=== PATIENT | male | born 2000 | race African-American/Black ===

== ENCOUNTER 2019-04-13 18:40 | Emergency (ER) | payer BC, MEDICAID ==
[~2019-04-13] VITALS: Ht 180.3 cm; Wt 112.0 kg
[2019-04-13 18:41] VITALS: BP 152/81
== END 2019-04-13 21:36 | disposition left against medical advice (07) ==
LOC: ER 18:40
DX: F41.9 Anxiety disorder, unspecified (principal); Z53.21 Procedure and treatment not carried out due to patient leaving prior to being seen by health care provider